=== PATIENT | female | born 1980 | race Caucasian/White ===

== ENCOUNTER 2021-01-13 20:14 | Emergency (ER) | payer BC ==
[~2021-01-13] VITALS: Ht 165.1 cm; Wt 88.6 kg
[2021-01-13 20:49] VITALS: BP 119/74
[2021-01-13 21:22] LABS: BASOPHILS % (AUTO) 0.2 % (0-1); EOSINOPHILS % (AUTO) 0.8 % (0-6); HEMATOCRIT 41.9 % (35.0-45.0); LYMPHOCYTES # (AUTO) 1.8 X10'3 (1.1-4.8); MEAN CORPUSCULAR HEMOGLOBIN 30.7 PG (27.0-31.0); MEAN CORPUSCULAR HGB CONC 33.4 g/dL (33.0-36.5); MEAN CORPUSCULAR VOLUME 91.8 FL (78-98); MEAN PLATELET VOLUME 8.7 FL (7.4-10.4); MONOCYTES # (AUTO) 0.4 X10'3 (0-0.9); MONOCYTES % (AUTO) 11.1 % (2-12); NEUTROPHILS # (AUTO) 1.3 X10'3 (1.8-7.7); NEUTROPHILS % (AUTO) 36.9 % (42-75); PLATELET COUNT 144 X10'3 (140-440); RED BLOOD COUNT 4.56 X10'6 (4.20-5.60); WHITE BLOOD COUNT 3.5 X10'3 (4.5-11.0)
[2021-01-13 21:37] LABS: ALANINE AMINOTRANSFERASE 38 U/L (12-78); ALBUMIN 3.7 G/DL (3.4-5.0); ALKALINE PHOSPHATASE 66 IU/L (46-116); ANION GAP 6 (8-16); ASPARTATE AMINO TRANSFERASE 31 U/L (10-37); BILIRUBIN,TOTAL 0.2 MG/DL (0.1-1.0); BLOOD UREA NITROGEN 15 MG/DL (7-18); BUN/CREATININE RATIO 16.1 (6.6-38.0); C-REACTIVE PROTEIN 0.57 MG/DL (0.0-0.5); CALCIUM 8.7 MG/DL (8.5-10.1); CHLORIDE 107 MMOL/L (99-107); CREATININE 0.93 MG/DL (0.40-0.90); GLUCOSE 102 MG/DL (70-104); LACTATE DEHYDROGENASE 228 U/L (81-234); POTASSIUM 4.4 MMOL/L (3.5-5.1); SODIUM 142 MMOL/L (135-145); TOTAL CARBON DIOXIDE 29.1 MMOL/L (24-32); TOTAL PROTEIN 7.4 G/DL (6.4-8.2); eGFR 66 ML/MIN
[2021-01-13] MEDS ORDERED: DEXA6TAB6 PO (21:51)
[2021-01-13] MEDS ORDERED: AMOX-422 PO (21:51)
[2021-01-13] MEDS ORDERED: ALBU8HFA PO (21:51)
[2021-01-13] MEDS ORDERED: DEXAMETHASONE 6 MG TABLET PO ONE (21:55)
[2021-01-13] MEDS ORDERED: dexamethasone 4mg tablet PO ONE (21:55)
== END 2021-01-13 22:21 | disposition home or self-care (01) ==
LOC: ER 20:16
DX: U07.1 COVID-19 (principal); K21.9 Gastro-esophageal reflux disease without esophagitis; Z79.899 Other long term (current) drug therapy
CPT/HCPCS: 36415; 71045; 80053; 83615; 85025; 86140; 93005; 99285; J8540

== ENCOUNTER 2021-01-16 08:29 | Emergency (ER) | payer BC ==
[~2021-01-16] VITALS: Ht 165.1 cm; Wt 88.6 kg
[~2021-01-16 08:29] MED LIST: ALBU8HFA PO; AMOX-422 PO; DEXA6TAB6 PO
[2021-01-16] MEDS ORDERED: ipratropium/albuterol 3ml nebule NEB ONE (08:55)
[2021-01-16 09:11] VITALS: BP 127/82
[2021-01-16 09:30] LABS: D-DIMER 0.83 MG/L FEU (0-0.50)
[2021-01-16] MEDS ORDERED: ALB0.5UD IH (10:48)
[2021-01-16] MEDS ORDERED: NEBU1KIT3 MC (10:48)
[2021-01-16] MEDS ORDERED: DEXA6TAB6 PO (10:54)
== END 2021-01-16 11:14 | disposition home or self-care (01) ==
LOC: ER 08:30
DX: U07.1 COVID-19 (principal); R06.02 Shortness of breath; K21.9 Gastro-esophageal reflux disease without esophagitis; Z79.2 Long term (current) use of antibiotics; Z79.899 Other long term (current) drug therapy
CPT/HCPCS: 36415; 71045; 85379; 94640; 94760; 99284

== ENCOUNTER 2023-11-15 13:21 | Outpatient (CLI) | payer MEDICAID ==
[~2023-11-15 13:21] MED LIST changes: -ALBU8HFA PO; -AMOX-422 PO; +NEBU1KIT3 MC
== END 2023-11-15 23:59 | disposition home or self-care (01) ==
LOC: RAD 13:21
PROVIDERS: ATTEND Student in an Organized Health Care Education/Training Program
DX: M54.2 Cervicalgia (principal)
CPT/HCPCS: 72050